=== PATIENT | male | born 1935 | race Caucasian/White ===

== ENCOUNTER 2017-07-23 07:30 | Emergency (ER) | payer MEDICARE, BC ==
[2017-07-23 07:41] VITALS: O2SAT 94
[2017-07-23 09:11] LABS: BASOPHILS % (AUTO) 0 % (0-3); EOSINOPHILS % (AUTO) 1 % (0-9); HEMATOCRIT 32 % (39-53); MEAN CORPUSCULAR HGB CONC 33.2 gm/dl (32.0-36.0); MEAN CORPUSCULAR VOLUME 85 fL (80-100); MONOCYTES % (AUTO) 8.8 % (0-12); NEUTROPHILS % (AUTO) 80.9 % (37-80)
[2017-07-23 09:25] LABS: CALCIUM 8.5 mg/dl (8.5-10.1); GLOM FILT RATE 72 mL/min (>60); POTASSIUM 3.7 mMol/L (3.5-5.1); SODIUM 133 mMol/L (136-145)
[2017-07-23] MEDS ORDERED: SODIUM CHLORIDE 0.9% 1000ML 1,000 ML IV ONE (09:45)
[2017-07-23] MEDS ORDERED: SODIUM CHLORIDE 0.9% FLUSH 10 ML SOL IV PRN (09:45)
[2017-07-23 12:09] VITALS: BP 130/65; PULSE 84; RESP 18; TEMP 97.2
== END 2017-07-23 11:55 | disposition home or self-care (01) | DRG 641 ==
LOC: ED 07:30
DX: E86.0 Dehydration (principal); J06.9 Acute upper respiratory infection, unspecified; Z91.81 History of falling; R53.1 Weakness
CPT/HCPCS: 36415; 70450; 71010; 80048; 84484; 85025; 93005; 96365; 96366; 99284; 99285

== ENCOUNTER 2017-08-09 22:37 | Emergency (ER) | payer MEDICARE, BC ==
[2017-08-09 22:56] VITALS: BP 123/62; PULSE 87; O2SAT 92
[2017-08-09 23:04] VITALS: TEMP 98.8
[2017-08-09 23:12] VITALS: RESP 16
== END 2017-08-09 23:32 | disposition home or self-care (01) | DRG 605 ==
LOC: ED 22:37
DX: S00.81XA Abrasion of other part of head, initial encounter (principal); R40.2132 Coma scale, eyes open, to sound, at arrival to emergency department; W01.198A Fall on same level from slipping, tripping and stumbling with subsequent striking against other object, initial encounter
CPT/HCPCS: 99282; 99283

== ENCOUNTER 2017-08-22 08:23 | Day surgery (SDC) | payer MEDICARE, BC ==
[~2017-08-22 08:23] MED LIST: LIDOCAINE HCL 1% MPF SOL ONE; PROPOFOL 500 MG/50 ML EMU IV ONE
[2017-08-22 11:04] VITALS: BP 115/62; PULSE 71; RESP 20; TEMP 96.6; O2SAT 97
== END 2017-08-22 11:20 | disposition home or self-care (01) | DRG 812 ==
LOC: SURG 08:23
PROVIDERS: ATTEND Surgery
DX: D50.0 Iron deficiency anemia secondary to blood loss (chronic) (principal); E11.9 Type 2 diabetes mellitus without complications; D12.3 Benign neoplasm of transverse colon; K31.7 Polyp of stomach and duodenum; K57.30 Diverticulosis of large intestine without perforation or abscess without bleeding
CPT/HCPCS: 82962; J2001; J2704

== ENCOUNTER 2018-02-14 12:27 | Outpatient (CLI) | payer MEDICARE, BC ==
[2017-08-22 11:04] VITALS: O2SAT 97
== END 2018-02-14 12:28 | disposition home or self-care (01) | DRG 554 ==
LOC: CONVCARE 12:27
PROVIDERS: ATTEND Orthopaedic Surgery
DX: M16.0 Bilateral primary osteoarthritis of hip (principal)

== ENCOUNTER → 2018-07-18 | Outpatient (CLI) | payer MEDICARE, BC ==
[2017-08-22 11:04] VITALS: O2SAT 97
== END | disposition home or self-care (01) | DRG 554 ==
LOC: CONVCARE 11:30
PROVIDERS: ATTEND Orthopaedic Surgery
DX: M16.0 Bilateral primary osteoarthritis of hip (principal)